=== PATIENT | female | born 1975 | race Caucasian/White ===

== ENCOUNTER → 2018-09-11 | Outpatient (REF) | payer OTHER | LOC: M SFHCLERA 16:17 | PROVIDERS: ATTEND Physician Assistant | DX: R30.0 Dysuria (principal) ==

== ENCOUNTER 2018-09-27 10:58 | Emergency (ER) | payer SELFPAY ==
[~2018-09-27] VITALS: Ht 154.9 cm; Wt 75.6 kg
[2018-09-27 12:25] LABS: BASO % 0.7 % (0.0-1.0); EOS # 0.1 10^3/uL (0.0-0.50); HEMATOCRIT 37.5 % (36.0-47.0); HEMOGLOBIN 12.2 g/dl (12.0-15.5); LYMPH # 1.8 10^3/uL (1.5-4.5); LYMPH % 30.3 % (24.0-44.0); MEAN CORPUSCULAR HEMOGLOBIN 28.5 pg (27.0-33.0); MEAN CORPUSCULAR HGB CONC 32.5 g/dl (32.0-36.5); MEAN CORPUSCULAR VOLUME 87.6 fl (80.0-96.0); MONO # 0.5 10^3/uL (0.0-0.8); MONO % 7.6 % (0.0-5.0); NEUTROPHILS # 3.6 10^3/uL (1.8-7.7); NEUTROPHILS % 60.1 % (36.0-66.0); PLATELET COUNT, AUTOMATED 197 10^3/uL (150-450); RED BLOOD COUNT 4.28 10^6/uL (4.00-5.40)
[2018-09-27 12:45] LABS: HCG, SERUM QUALITATIVE NEGATIVE (NEGATIVE)
[2018-09-27 12:49] LABS: ALBUMIN 4.2 GM/DL (3.2-5.2); ALT/SGPT 11 U/L (12-78); BILIRUBIN,DIRECT 0.2 MG/DL (0.0-0.2); BLOOD UREA NITROGEN 5 MG/DL (7-18); CALCIUM LEVEL 9.3 MG/DL (8.5-10.1); CARBON DIOXIDE LEVEL 29 MEQ/L (21-32); CHLORIDE LEVEL 108 MEQ/L (98-107); CREATININE FOR GFR 0.58 MG/DL (0.55-1.30); GLOMERULAR FILTRATION RATE > 60.0 (>58); GLUCOSE, FASTING 79 MG/DL (70-100); SODIUM LEVEL 141 MEQ/L (136-145); TOTAL PROTEIN 7.8 GM/DL (6.4-8.2)
[2018-09-27 13:38] LABS: LIPASE 105 U/L (73-393)
[2018-09-27] MEDS ORDERED: IBUP-1022 PO (14:12)
[2018-09-27] MEDS ORDERED: PYRI1TAB5 PO (14:12)
--- NOTE | 2018-09-27 14:13 | REP ---
RIGHT UPPER QUADRANT ULTRASOUND: Real-time sonographic evaluation of the right upper quadrant performed. Gallbladder demonstrates no evidence of intraluminal sludge or calculi, wall thickening, or pericholecystic fluid. There is no intrahepatic or extrahepatic biliary dilatation, common bile duct measuring 5 mm. Liver may be mildly enlarged. No liver or pancreatic mass is visualized. Right kidney demonstrates length of 11.4 cm. There appears to be an extrarenal pelvis. No free fluid is seen. IMPRESSION: Possible mild hepatomegaly with length 18.2 cm. No gallstones, gallbladder wall thickening, biliary dilatation, or free fluid. Small extrarenal pelvis right kidney which is mildly prominent, AP diameter 1.2 cm. No overt hydronephrosis. Electronically Signed by Partha Grimm MD 09/28/2018 07:44 A
[2018-09-27 14:24] VITALS: BP 121/59
--- NOTE | 2018-09-27 15:22 | REP ---
CHEST, TWO VIEW: There is no evidence of acute infiltrate. No pleural effusion is seen. The heart is normal in size. The mediastinal silhouette is unremarkable. The visualized osseous structures are intact. There are degenerative changes of the spine. IMPRESSION: No acute pulmonary disease. Electronically Signed by Partha Grimm MD 09/28/2018 07:47 A
== END 2018-09-27 14:26 | disposition home or self-care (01) ==
LOC: M ED 10:58
DX: R30.0 Dysuria (principal); R10.9 Unspecified abdominal pain